=== PATIENT | male | born 1975 | race Caucasian/White ===

== ENCOUNTER 2022-02-13 16:06 | Inpatient (IN) ==
[2022-02-13 16:58] LABS: Basophils % 0.3 %; Eosinophils # 0.3 K/mcL (0.0-0.6); Eosinophils % 2.3 %; Hematocrit 48.5 % (37.5-50.1); Hemoglobin 17.1 g/dL (12.9-16.9); Immature Granulocytes % 0.6 % (0-4); Lymphocytes # 3.8 K/mcL (0.6-4.6); Lymphocytes % 33.2 %; Mean Corpuscular HGB Conc 35.3 g/dL (31.6-35.5); Mean Corpuscular Hemoglobin 33.8 pg (28.0-33.3); Mean Corpuscular Volume 95.8 fL (83.0-100.0); Mean Platelet Volume 9.8 fL (9.4-12.4); Monocytes # 1.5 K/mcL (0.0-1.3); Monocytes % 12.9 %; Neutrophils # 5.8 K/mcL (1.6-8.9); Platelet Count 208 K/mcL (140-400); Red Blood Count 5.06 M/mcL (4.19-5.50); Red Cell Distribution Width 13.8 % (11.5-14.5); Segmented Neutrophils % 50.7 %; White Blood Count 11.5 K/mcL (4.3-11.1)
[2022-02-13 17:05] LABS: Prothrombin Time 10.8 Seconds (9.4-12.1)
[2022-02-13 17:08] LABS: Activated Partial Thrombo Time 31.8 Seconds (26.0-36.0)
[2022-02-13 17:21] LABS: Acetaminophen < 10 mcg/mL (10-20); BUN/Creatinine Ratio 12 (6-26); Blood Urea Nitrogen 10 mg/dL (6-20); Calcium 9.2 mg/dL (8.6-10.3); Carbon Dioxide 20 mEq/L (23-29); Chloride 102 mEq/L (98-107); Ethanol 249 mg/dL (Less than 10); Glucose 98 mg/dL (70-105); Osmolality,Calculated 273 (280-300); Potassium 4.1 mEq/L (3.5-5.1); Salicylate < 2.5 mg/dL (15.0-30.0); Sodium 132 mEq/L (136-145); Troponin I < 0.03 ng/mL (< 0.04); eGFR For African Americans > 60 (> 60); eGFR For Non-African Americans > 60 (> 60)
[2022-02-13 17:24] LABS: Bilirubin,Urine Negative (Negative); Blood,Urine Negative (Negative); Clarity,Urine Clear (Clear); Color,Urine Light-Yellow (Yellow); Glucose,Urine (UA) Normal (Normal); Ketones,Urine Negative (Negative); Leukocyte Esterase,Urine Negative (Negative); Nitrite,Urine Negative (Negative); PH,Urine 5.5 pH Units (5.0-8.0); Protein,Urine Negative (Neg-Trace); Specific Gravity,Urine 1.007 (1.010-1.025); Urobilinogen,Urine Normal (Normal)
[2022-02-13 17:34] LABS: Amphetamine Screen,Urine Negative ng/mL (Cutoff=1000); Barbiturate Screen,Urine Negative ng/mL (Cutoff=200); Benzodiazepines Screen,Urine Negative ng/mL (Cutoff=200); Cannabinoid Screen,Urine Negative ng/mL (Cutoff = 50); Cocaine Screen,Urine Negative ng/mL (Cutoff= 300); Opiate Screen,Urine Negative ng/mL (Cutoff=300); Phencyclidine Screen,Urine Negative ng/mL (Cutoff=25)
[2022-02-13 21:07] LABS: Ethanol 120 mg/dL (Less than 10)
[2022-02-13] MEDS ORDERED: Melatonin 3 MG TABLET PO PRN (21:47)
[2022-02-13] MEDS ORDERED: Naloxone 0.4 MG/ML INJ IVP PRN (21:47)
[2022-02-13] MEDS ORDERED: *HR* LORazepam 2 MG/ML VIAL IVP PRN (21:49)
[2022-02-13] MEDS ORDERED: *HR* Promethazine 25 MG/ML VIAL IM PRN (21:49)
[2022-02-13 22:15] LABS: Troponin I < 0.03 ng/mL (< 0.04)
[2022-02-13 22:21] LABS: Lipase 26 Units/L (11-82)
[2022-02-13 23:12] LABS: Influenza A PCR Negative (Negative); Influenza B PCR Negative (Negative); Resp. Syncytial Virus PCR Negative (Negative)
[2022-02-13 23:13] LABS: SARS-CoV-2 by PCR (In House) Negative (Negative)
[2022-02-13] MEDS: *HR* LORazepam 2 MG/ML VIAL IVP PRN (23:36)
[2022-02-13] MEDS: Acetaminophen 325 MG TABLET PO PRN (23:37)
[2022-02-14] MEDS ORDERED: Perflutren Lipid Microsphere 1.3 ML in 0.9 % Sodium Chloride 8.7 ML IVP PRN (00:15)
[2022-02-14] MEDS ORDERED: Pantoprazole 40 MG VIAL IVP ONE (00:15)
[2022-02-14 01:47] LABS: Basophils % 0.3 %; Eosinophils # 0.3 K/mcL (0.0-0.6); Eosinophils % 3.6 %; Hematocrit 46.5 % (37.5-50.1); Hemoglobin 16.1 g/dL (12.9-16.9); Immature Granulocytes % 0.5 % (0-4); Lymphocytes # 2.7 K/mcL (0.6-4.6); Lymphocytes % 31.7 %; Mean Corpuscular HGB Conc 34.6 g/dL (31.6-35.5); Mean Corpuscular Hemoglobin 33.1 pg (28.0-33.3); Mean Corpuscular Volume 95.7 fL (83.0-100.0); Mean Platelet Volume 10.1 fL (9.4-12.4); Monocytes # 1.2 K/mcL (0.0-1.3); Monocytes % 13.6 %; Neutrophils # 4.3 K/mcL (1.6-8.9); Platelet Count 198 K/mcL (140-400); Red Blood Count 4.86 M/mcL (4.19-5.50); Red Cell Distribution Width 13.6 % (11.5-14.5); Segmented Neutrophils % 50.3 %; White Blood Count 8.6 K/mcL (4.3-11.1)
[2022-02-14 01:54] LABS: INR 0.9; Prothrombin Time 10.3 Seconds (9.4-12.1)
[2022-02-14 01:58] LABS: Activated Partial Thrombo Time 30.1 Seconds (26.0-36.0)
[2022-02-14 02:06] LABS: Alanine Aminotransferase 20 Units/L (7-52); Albumin 4.2 g/dL (3.5-5.7); Albumin/Globulin Ratio 1.7 (1.1-2.2); Alkaline Phosphatase 65 Units/L (34-104); Aspartate Amino Transferase 23 Units/L (13-39); BUN/Creatinine Ratio 14 (6-26); Bilirubin,Total 0.5 mg/dL (0.3-1.0); Blood Urea Nitrogen 13 mg/dL (6-20); Calcium 9.5 mg/dL (8.6-10.3); Carbon Dioxide 27 mEq/L (23-29); Chloride 102 mEq/L (98-107); Globulin 2.5 g/dL (2.4-3.5); Glucose 101 mg/dL (70-105); Osmolality,Calculated 282 (280-300); Phosphorous 3.4 mg/dL (2.7-4.5); Potassium 4.5 mEq/L (3.5-5.1); Sodium 136 mEq/L (136-145); Total Protein 6.7 g/dL (6.4-8.9); eGFR For African Americans > 60 (> 60); eGFR For Non-African Americans > 60 (> 60)
[2022-02-14 02:07] LABS: Chol/HDL Ratio 2.9 (0-4.9)
[2022-02-14 02:16] LABS: Thyroid Stimulating Hormone 2.868 mcIU/mL (0.340-5.600)
[2022-02-14] MEDS: Ipratropium/Albuterol Neb 3 ML IH SCH ×2 (04:38→10:39)
[2022-02-14] MEDS: *HR* Enoxaparin 40 MG/0.4 ML SYRINGE SQ SCH (05:41)
[2022-02-14] MEDS: Thiamine (B-1) 100 MG TABLET PO SCH (08:12)
[2022-02-14] MEDS: lisinopriL 5 MG TABLET PO SCH (08:12)
[2022-02-14] MEDS: Chlorhexidine Rinse 15 ML MOUTHWASH MM SCH ×2 (08:12→19:47)
[2022-02-14] MEDS: predniSONE 20 MG TABLET PO SCH (08:12)
[2022-02-14] MEDS: Vitamin B Complex/Vit C/Vit E 1 EACH TABLET PO SCH (08:12)
[2022-02-14] MEDS: Spironolactone 12.5 MG TABLET PO SCH (08:12)
[2022-02-14] MEDS: Folic Acid 1 MG TABLET PO SCH (08:12)
[2022-02-14] MEDS: *HR* LORazepam 2 MG/ML VIAL IVP PRN ×7 (08:18→23:19)
[2022-02-14] MEDS ORDERED: Nicotine 21 MG PATCH.TD24 TD SCH (09:00)
[2022-02-14] MEDS: Budesonide/Formoterol 160/4.5 1 PUFF INH IH SCH ×2 (10:39→20:18)
[2022-02-14] MEDS ORDERED: *HR* Metoprolol 5 MG/5 ML VIAL IVP ONE (14:29)
[2022-02-14] MEDS: Metoprolol XL (24 HR) Succ 25 MG TAB.ER.24H PO SCH (14:35)
[2022-02-14] MEDS ORDERED: Ipratropium/Albuterol Neb 3 ML IH SCH (16:00)
[2022-02-14] MEDS ORDERED: Ipratropium/Albuterol Neb 3 ML IH ONE (16:37)
[2022-02-14] MEDS ORDERED: Ipratropium/Albuterol Neb 3 ML IH PRN (16:37)
[2022-02-14] MEDS ORDERED: Nicotine 2 MG GUM BC PRN (21:14)
[2022-02-14] MEDS: Nicotine 21 MG PATCH.TD24 TD SCH (22:45)
[2022-02-15] MEDS: *HR* LORazepam 2 MG/ML VIAL IVP PRN ×4 (00:09→16:40)
[2022-02-15] MEDS: *HR* Enoxaparin 40 MG/0.4 ML SYRINGE SQ SCH (05:19)
[2022-02-15] MEDS: Budesonide/Formoterol 160/4.5 1 PUFF INH IH SCH ×2 (07:19→21:15)
[2022-02-15] MEDS ORDERED: Metoprolol XL (24 HR) Succ 25 MG TAB.ER.24H PO SCH (09:00)
[2022-02-15] MEDS: Thiamine (B-1) 100 MG TABLET PO SCH (09:17)
[2022-02-15] MEDS: predniSONE 20 MG TABLET PO SCH (09:17)
[2022-02-15] MEDS: lisinopriL 5 MG TABLET PO SCH (09:17)
[2022-02-15] MEDS: Spironolactone 12.5 MG TABLET PO SCH (09:17)
[2022-02-15] MEDS: Folic Acid 1 MG TABLET PO SCH (09:17)
[2022-02-15] MEDS: Vitamin B Complex/Vit C/Vit E 1 EACH TABLET PO SCH (09:17)
[2022-02-15] MEDS: Chlorhexidine Rinse 15 ML MOUTHWASH MM SCH ×2 (09:18→20:28)
[2022-02-15] MEDS: Nicotine 21 MG PATCH.TD24 TD SCH (09:18)
[2022-02-15] MEDS: Metoprolol XL (24 HR) Succ 25 MG TAB.ER.24H PO SCH ×2 (09:18→20:28)
[2022-02-15 19:05] VITALS: TEMP 97.6
[2022-02-15] MEDS: Acetaminophen 325 MG TABLET PO PRN (20:28)
[2022-02-16] MEDS: *HR* Enoxaparin 40 MG/0.4 ML SYRINGE SQ SCH (06:24)
[2022-02-16 07:28] VITALS: BP 105/69; PULSE 73; O2SAT 97
[2022-02-16] MEDS: Spironolactone 12.5 MG TABLET PO SCH (09:04)
[2022-02-16] MEDS: Chlorhexidine Rinse 15 ML MOUTHWASH MM SCH (09:04)
[2022-02-16] MEDS: lisinopriL 5 MG TABLET PO SCH (09:04)
[2022-02-16] MEDS: Metoprolol XL (24 HR) Succ 25 MG TAB.ER.24H PO SCH (09:04)
[2022-02-16] MEDS: Thiamine (B-1) 100 MG TABLET PO SCH (09:05)
[2022-02-16] MEDS: Vitamin B Complex/Vit C/Vit E 1 EACH TABLET PO SCH (09:05)
[2022-02-16] MEDS: Nicotine 21 MG PATCH.TD24 TD SCH (09:05)
[2022-02-16] MEDS: Folic Acid 1 MG TABLET PO SCH (09:05)
[2022-02-16] MEDS: predniSONE 20 MG TABLET PO SCH (09:05)
== END 2022-02-16 09:26 | DRG 817 ==
LOC: EMEROOARM 16:06 → 2ANU 16:06 → SUATTDRO 21:58 → 2ANU 22:50
PROVIDERS: ADMIT Internal Medicine; ATTEND Internal Medicine